=== PATIENT | female | born 1960 | race Caucasian/White ===

== ENCOUNTER 2016-07-05 15:29 | Emergency (ER) | payer OTHER ==
[~2016-07-05] VITALS: Ht 167.6 cm; Wt 98.9 kg
[2016-07-05 15:36] VITALS: BP 122/76
[2016-07-05] MEDS ORDERED: HYDR-971 PO (15:45)
--- NOTE | 2016-07-05 16:39 | ED.ADGEN ---
Adult General HPI HPI Patient is a 56-year-old female presents emergency department complaining of left knee pain for the last 1 week. Patient denies any trauma or fall to the knee. His been using [id number] medicines without satisfactory relief. Ambulating uncomfortably. Review of Systems Review of Systems Constitutional: Denies fever or chills [] Eyes: Denies change in visual acuity, redness, or eye pain [] HENT: Denies nasal congestion or sore throat [] Respiratory: Denies cough or shortness of breath [] Cardiovascular: No additional information not addressed in HPI [] GI: Denies abdominal pain, nausea, vomiting, bloody stools or diarrhea [] : Denies dysuria or hematuria [] Musculoskeletal: Denies back pain or joint pain [] Integument: Denies rash or skin lesions [] Neurologic: Denies headache, focal weakness or sensory changes [] Endocrine: Denies polyuria or polydipsia [] Allergies Allergies Allergies Coded Allergies Type Severity Reaction Last Updated Verified clindamycin Allergy Mild Rash 07/05/16 Yes Physical Exam Physical Exam Constitutional: Well developed, well nourished, no acute distress, non-toxic appearance. [] HENT: Normocephalic, atraumatic, bilateral external ears normal, oropharynx moist, no oral exudates, nose normal. [] Eyes: PERRLA, EOMI, conjunctiva normal, no discharge. [] Neck: Normal range of motion, no tenderness, supple, no stridor. [] Cardiovascular:Heart rate regular rhythm, no murmur [] Lungs & Thorax: Bilateral breath sounds clear to auscultation [] Abdomen: Bowel sounds normal, soft, no tenderness, no masses, no pulsatile masses. [] Skin: Warm, dry, no erythema, no rash. [] Extremities: left knee diffusely ttp with mild edema, no cyanosis, no clubbing, ROM intact, [] Neurologic: Alert and oriented X 3, normal motor function, normal sensory function, no focal deficits noted. [] Psychologic: Affect normal, judgement normal, mood normal. [] EKG EKG [] Radiology/Procedures Radiology/Procedures [] Course & Med Decision Making Course & Med Decision Making Pertinent Labs and Imaging studies reviewed. (See chart for details) Patient was placed in a knee immobilizer. She is given a prescription for [place]. She was given supportive care and follow-up instructions. She already has an appointment with her primary care physician 4 days. She will return emergency department sooner if she develops any new or worsening symptoms. [] Final Impression Final Impression knee pain[] Problems: Dragon Disclaimer Dragon Disclaimer This electronic medical record was generated, in whole or in part, using a voice recognition dictation system. KALPANA BRUCE MD Jul 05, 2016 16:39
== END 2016-07-05 15:45 | disposition home or self-care (01) ==
LOC: ER 15:29
DX: S80.02XA Contusion of left knee, initial encounter (principal); Z88.1 Allergy status to other antibiotic agents; X58.XXXA Exposure to other specified factors, initial encounter; Y93.89 Activity, other specified; Y92.89 Other specified places as the place of occurrence of the external cause; Y99.8 Other external cause status
CPT/HCPCS: 29505; 99283-25

== ENCOUNTER 2018-01-02 20:47 | Emergency (ER) | payer OTHER ==
[~2018-01-02] VITALS: Ht 167.6 cm; Wt 97.1 kg
[~2018-01-02 20:47] MED LIST: HYDR-971 PO
--- NOTE | 2018-01-02 21:10 | ED.ADGEN ---
Past History Past Medical History: No Pertinent History Past Surgical History: No Surgical History Alcohol Use: None Drug Use: None Adult General Chief Complaint Chief Complaint .. I had a repair on this Lt. foot.. but it been some time.. ago.. but it just started hurting today.. and I never twisted it or any thing..." HPI HPI Patient is a 57 year old female who presents with above hx and complaints of foot and ankle pain. Patient localizes primary of pain over the proximal first toe area of left foot. Does have old surgery scar there and in ankle area. Patient's distal neurovascular intact. There is no redness or cellulitis. There is no striations. There is no adenopathy. Distal neurovascular equal to right foot. Ankle mortise appears to be stable. Patient's had no history of or pseudogout. Patient presentation is not typical for gout. Review of Systems Review of Systems Constitutional: Denies fever or chills [] Eyes: Denies change in visual acuity, redness, or eye pain [] HENT: Denies nasal congestion or sore throat [] Respiratory: Denies cough or shortness of breath [] Cardiovascular: No additional information not addressed in HPI [] GI: Denies abdominal pain, nausea, vomiting, bloody stools or diarrhea [] : Denies dysuria or hematuria [] Musculoskeletal: Denies back pain or joint pain []complaints of Lt foot pain Integument: Denies rash or skin lesions [] Neurologic: Denies headache, focal weakness or sensory changes [] Endocrine: Denies polyuria or polydipsia [] All other systems were reviewed and found to be within normal limits, except as documented in this note. Family History Family History Noncontributory Current Medications Current Medications Current Medications Medications (Trade) Dose Ordered Sig/[facility] Start Time Stop Time Status Last Admin Dose Admin Ketorolac Tromethamine (Toradol Im) 60 mg 1X ONCE 01/02/18 22:15 01/02/18 22:28 DC 01/02/18 22:13 60 MG Allergies Allergies Allergies Coded Allergies Type Severity Reaction Last Updated Verified clindamycin Allergy Mild Rash 07/05/16 Yes Physical Exam Physical Exam Constitutional: Moderately acute distress, non-toxic appearance. [] HENT: Normocephalic, atraumatic, bilateral external ears normal, oropharynx moist, no oral exudates, nose normal. [] Eyes: PERRLA, EOMI, conjunctiva normal, no discharge. [] Neck: Normal range of motion, no tenderness, supple, no stridor. [] Cardiovascular:Heart rate regular rhythm, no murmur [] Lungs & Thorax: Bilateral breath sounds clear to auscultation [] Abdomen: Bowel sounds normal, soft, no tenderness, no masses, no pulsatile masses. [] Obese. Skin: Warm, dry, no erythema, no rash. [] Back: No tenderness, no CVA tenderness. [] Extremities: No tenderness, no cyanosis, no clubbing, ROM intact, no edema. [] Left foot pain as per history of present illness Neurologic: Alert and oriented X 3, normal motor function, normal sensory function, no focal deficits noted. [] Psychologic: Affect normal, judgement normal, mood normal. [] Current Patient Data Vital Signs Vital Signs Date Time Temp Pulse Resp B/P (MAP) Pulse Ox O2 Delivery O2 Flow Rate FiO2 01/02/18 21:23 97.9 78 16 98 Room Air EKG EKG [] Radiology/Procedures Radiology/Procedures My interpretation of left foot x-ray shows marked degenerative joint changes. Previous fixation of metatarsal and tendon anchor. No findings of acute fracture.[] Course & Med Decision Making Course & Med Decision Making Pertinent Labs and Imaging studies reviewed. (See chart for details). Take Tylenol and ibuprofen for pain. Elevation. Rest. Stiff shoe. Give a trial of ice packs as needed. If this is gout or pseudogout that this will exacerbate the pain. Follow-up primary care. Return if any concerns. Follow up with primary and orthro. [] Final Impression Final Impression 1. Arthritic pain.= ISA Monique Disclaimer Eneida Disclaimer This electronic medical record was generated, in whole or in part, using a voice recognition dictation system. PRINCESS ZHANG MD Jan 02, 2018 21:10
[2018-01-02 21:23] VITALS: BP 119/81
--- NOTE | 2018-01-02 21:40 | RAD ---
EXAM: 3 views left foot DATE: 01/02/2018 9:20 PM INDICATION: Left top of foot pain radiating into 1st toe x 2 days, no trauma. Hx: Tendon repair and extra bone removal per patient in left foot COMPARISON: No Prior FINDINGS/ IMPRESSION: Changes of hallux metatarsal osteotomy with screw fixation in good alignment without definite hardware complication. Seizure tendon anchor projects over the navicular from prior tendinous repair. Calcaneal enthesopathy. Midfoot degenerative changes are seen with small osteophytes. No evidence of acute fracture or dislocation. Electronically signed by: Bjorn Antonio MD (01/02/2018 9:36 PM) [facility]
[2018-01-02] MEDS ORDERED: HYDR-79 PO (22:05)
[2018-01-02] MEDS ORDERED: KETOROLAC 60 MG/2 ML VIAL. IM ONE (22:15)
== END 2018-01-02 22:30 | disposition home or self-care (01) ==
LOC: ER 20:47
DX: M19.072 Primary osteoarthritis, left ankle and foot (principal); Z88.1 Allergy status to other antibiotic agents
CPT/HCPCS: 73630; 96372; 99284; J1885